=== PATIENT | female | born 1995 ===

== ENCOUNTER 2017-02-28 20:59 | Emergency (ER) | payer MEDICAID, OTHER ==
[2017-02-28 21:40] VITALS: BMI 20.2
[2017-02-28 22:02] VITALS: BP 107/61; PULSE 75; RESP 18; TEMP 98.9; O2SAT 97
--- NOTE | 2017-02-28 23:52 | ED PDOC ---
Arrival/HPI - General Historian: Patient - History of Present Illness Time/Duration: Other (2 days) Symptom Onset: Gradual Symptom Course: Worsening <Violette Kiser - Last Filed: 02/28/17 23:49> <James Trujillo - Last Filed: 03/01/17 00:01> - General Chief Complaint: ENT Problem Time Seen by Provider: 02/28/17 21:29 - History of Present Illness Narrative History of Present Illness (Text): 02/28/17 23:53 21yr old female presents today with a 2 day history of cough, fever, left ear pain. pt took dayquil with slight improvement in symptoms; denies abdominal pain ; no n/v/d/c. no sick contacts. denies urinary symptoms. c/o dry cough. (Violette Kiser) Past Medical History - Provider Review Nursing Documentation Reviewed: Yes - Travel History Have you recently traveled outside [place] w/in the past 3 mons?: No - Past History Past History: No Previous - Tetanus Immunization Tetanus Immunization: Unknown - Psychiatric Hx Depression: No Hx Emotional Abuse: No Hx Physical Abuse: No Hx Substance Use: No - Past Surgical History Past Surgical History: No Previous - Suicidal Assessment Feels Threatened In Home Enviroment: No <Violette Kiser - Last Filed: 02/28/17 23:49> Family/Social History - Physician Review Nursing Documentation Reviewed: Yes Family/Social History: Unknown Family HX Smoking Status: Never Smoked Hx Alcohol Use: No Hx Substance Use: No <Violette Kiser - Last Filed: 02/28/17 23:49> Allergies/Home Meds <Violette Kiser - Last Filed: 02/28/17 23:49> <James Trujillo - Last Filed: 03/01/17 00:01> Allergies/Adverse Reactions: Allergies No Known Allergies Allergy (Verified 09/17/12 20:17) Review of Systems - Review of Systems Constitutional: Fevers ENT: Sinus Congestion, Other (left ear pain) Respiratory: Cough. absent: SOB Cardiovascular: absent: Chest Pain, Palpitations Gastrointestinal: absent: Abdominal Pain, Nausea, Vomiting Genitourinary Female: absent: Dysuria, Frequency, Hematuria Musculoskeletal: absent: Arthralgias, Back Pain, Neck Pain Neurological: absent: Headache, Dizziness Psychiatric: absent: Anxiety, Depression, Suicidal Ideation <Violette Kiser - Last Filed: 02/28/17 23:49> Physical Exam Vital Signs Reviewed: Yes Temperature: Afebrile Blood Pressure: Normal Pulse: Regular Respiratory Rate: Normal Appearance: Positive for: Well-Appearing, Non-Toxic, Comfortable Pain Distress: None Mental Status: Positive for: Alert and Oriented X 3 - Systems Exam Head: Present: Atraumatic Conjunctiva: Present: Normal Ears: Present: Normal, NORMAL TM, Normal Canal. No: Erythema Mouth: Present: Moist Mucous Membranes, Normal Lips, Normal Tounge, Normal Teeth. No: Drooling, Trismus Pharnyx: Present: Normal. No: ERYTHEMA, EXUDATE, TONSILS ENLARGED, Peritonsilar Swelling, Uvular Deviation, Muffled/Hoarse Voice Nose (External): Present: Atraumatic Nose (Internal): Present: Normal Inspection Neck: Present: Normal Range of Motion, Trachea Midline. No: Meningeal Signs, Lymphadenopathy Respiratory/Chest: Present: Clear to Auscultation, Good Air Exchange. No: Respiratory Distress, Accessory Muscle Use Cardiovascular: Present: Regular Rate and Rhythm, Normal S1, S2. No: Murmurs Abdomen: No: Tenderness, Distention, Rebound, Guarding Lower Extremity: Present: Normal Inspection Neurological: Present: GCS=15, Speech Normal Skin: Present: Warm, Dry, Normal Color. No: Rashes Psychiatric: Present: Alert, Oriented x 3 <Violette Kiser - Last Filed: 02/28/17 23:49> Vital Signs Temp Pulse Resp BP Pulse Ox 02/28/17 21:55 98.9 F 75 18 107/61 97 Medical Decision Making <Violette Kiser - Last Filed: 02/28/17 23:49> <James Trujillo - Last Filed: 03/01/17 00:01> ED Course and Treatment: 02/28/17 23:56 Patient nontoxic well-appearing no distress with stable vital signs Chest x-ray no infiltrate or effusion Case discussed with Dr. Trujillo; Will start patient on Zithromax Patient advised to follow up with the PMD. Advised immediate return if symptoms worsen persist or if new concerning symptoms develop Patient verbalizes understanding of discharge instructions and need for immediate followup. impression; cough, earache zithromax; daily x 4 days increase fluids Motrin every 6 hours as needed for pain/fever reduction follow up with the primary care physician within the next 2 days return immediately if symptoms worsen, persist or if new symptoms develop. (Violette Kiser) - RAD Interpretation Radiology Orders: 02/28/17 22:22 CHEST TWO VIEWS (PA/LAT) [RAD] Stat - Medication Orders Current Medication Orders: Discontinued Medications Azithromycin (Zithromax) 500 mg PO STAT STA PRN Reason: Protocol Stop: 02/28/17 23:35 Last Admin: 02/28/17 23:44 Dose: 500 mg Ibuprofen (Motrin Tab) 600 mg PO STAT STA Stop: 02/28/17 22:23 Last Admin: 02/28/17 22:50 Dose: 600 mg MAR Pain/Vitals Document 02/28/17 22:50 RD (Rec: 02/28/17 22:50 [place] [facility] [id number] Pain Reassessment Is This A Pain ReAssessment? No Sleep Is patient sleeping during reassessment? No Presence of Pain Presence of Pain Yes - PA / [employer] / Resident Statement MD/DO has reviewed & agrees with the documentation as recorded. <James Trujillo - Last Filed: 03/01/17 00:01> Disposition/Present on Arrival - Present on Arrival Any Indicators Present on Arrival: No History of DVT/PE: No History of Uncontrolled Diabetes: No Urinary Catheter: No History of Decub. Ulcer: No History Surgical Site Infection Following: None - Disposition Have Diagnosis and Disposition been Completed?: Yes Disposition Time: 23:51 Patient Plan: Discharge <Violette Kiser - Last Filed: 02/28/17 23:49> <James Trujillo - Last Filed: 03/01/17 00:01> - Disposition Diagnosis: Cough, Ear ache Disposition: HOME/ ROUTINE Condition: GOOD Discharge Instructions (ExitCare): Earache (ED), Acute Cough (ED) Additional Instructions: zithromax; daily x 4 days increase fluids Motrin every 6 hours as needed for pain/fever reduction follow up with the primary care physician within the next 2 days return immediately if symptoms worsen, persist or if new symptoms develop. Prescriptions: Azithromycin [Zithromax] 250 mg PO DAILY #4 tab Ibuprofen [Motrin] 600 mg PO Q6H PRN #20 tab PRN Reason: pain/fever reduction Referrals: Nessa Ivan MD [Primary Care Provider] - Follow up with primary Forms: [facility] ([place]), WORK NOTE, SCHOOL NOTE
--- NOTE | 2017-03-01 12:34 | RAD ---
HISTORY: cough/fever COMPARISON: No prior. TECHNIQUE: Chest PA and lateral FINDINGS: LUNGS: No active pulmonary disease. PLEURA: No significant pleural effusion identified. No pneumothorax apparent. CARDIOVASCULAR: Normal. OSSEOUS STRUCTURES: No significant abnormalities. VISUALIZED UPPER ABDOMEN: Normal. OTHER FINDINGS: None. IMPRESSION: No active disease.
== END 2017-03-01 00:02 | disposition home or self-care (01) ==
LOC: ED 20:59
DX: R05 Cough (principal); H92.02 Otalgia, left ear